=== PATIENT | male | born 1980 | race African-American/Black ===

== ENCOUNTER 2024-01-24 18:27 | Emergency (ER) | payer OTHER ==
[2024-01-24] MEDS ORDERED: hydrALAZINE 20 MG/ML VIAL ONE ×2 (19:28→20:45)
[2024-01-24] MEDS ORDERED: Furosemide 40 MG (4 mL) VIAL ONE (19:28)
[2024-01-24 19:55] LABS: #Basophils 0.03 10x3/uL (0.0-0.2); #Eosinophils 0.05 10x3/uL (0.0-0.5); #Monocytes 0.56 10x3/uL (0.0-1.1); #Neutrophils 3.39 10x3/uL (1.5-8.4); %Basophils 0.6 % (0.0-2.0); %Lymphocytes 22.9 % (18.0-47.0); %Monocytes 10.7 % (0.0-10.0); %Neutrophils 64.4 % (40.0-75.0); Hematocrit 42.3 % (38.8-50.0); Hemoglobin 14.5 g/dL (13.5-17.5); Mean Corpuscular HGB CONC 34.3 g/dL (32.0-36.0); Mean Corpuscular Hemoglobin 31.3 pg (27.0-33.0); Mean Corpuscular Volume 91.2 fL (81.2-95.1); Platelet Count 142 10x3/uL (150-450); RBC Distribution Width 13.7 % (11.5-14.5); Red Blood Cell (RBC) Count 4.64 10x6/uL (4.32-5.72); White Blood Cell (WBC) Count 5.3 10x3/uL (3.5-10.5)
[2024-01-24 20:07] LABS: Anion Gap 16 mmol/L (10-20); BUN (Urea Nitrogen) 13 mg/dL (8.9-20.6); Calc. Creatinine Clearance 0 mL/min (70-130); Calcium 9.6 mg/dL (7.8-10.44); Carbon Dioxide 27 mmol/L (22-29); Chloride 100 mmol/L (98-107); Estimated GFR 68; Glucose 90 mg/dL (70-105); Potassium 3.5 mmol/L (3.5-5.1); Sodium 139 mmol/L (136-145)
[2024-01-24 20:08] LABS: Troponin I 0.073 ng/mL (< 0.028)
[2024-01-24] MEDS ORDERED: Labetalol HCl 100 MG/20 ML VIAL ONE (20:46)
== END 2024-01-24 22:20 | disposition home or self-care (01) ==
LOC: CSHERS 18:27
DX: I10 Essential (primary) hypertension (principal)
CPT/HCPCS: 71045; 80048; 83880; 84484; 85025; 93005; 96374; 96375; J0360; J1940

== ENCOUNTER 2024-04-02 10:27 | Emergency (ER) | payer OTHER ==
[2024-04-02 11:59] LABS: #Basophils 0.05 10x3/uL (0.0-0.2); #Eosinophils 0.06 10x3/uL (0.0-0.5); #Monocytes 0.52 10x3/uL (0.0-1.1); #Neutrophils 5.77 10x3/uL (1.5-8.4); %Basophils 0.7 % (0.0-2.0); %Eosinophils 0.8 % (0.0-6.0); %Lymphocytes 12.2 % (18.0-47.0); %Monocytes 7.1 % (0.0-10.0); %Neutrophils 78.9 % (40.0-75.0); Hematocrit 43.9 % (38.8-50.0); Hemoglobin 14.9 g/dL (13.5-17.5); Mean Corpuscular HGB CONC 33.9 g/dL (32.0-36.0); Mean Corpuscular Hemoglobin 30.5 pg (27.0-33.0); Mean Platelet Volume 11.3 fL (7.4-10.4); Platelet Count 196 10x3/uL (150-450); RBC Distribution Width 13.8 % (11.5-14.5); Red Blood Cell (RBC) Count 4.88 10x6/uL (4.32-5.72); White Blood Cell (WBC) Count 7.31 10x3/uL (3.5-10.5)
[2024-04-02 12:10] LABS: ALT (SGPT) 48 U/L (8-55); AST (SGOT) 37 U/L (5-34); Albumin 3.8 g/dL (3.5-5.0); Alkaline Phosphatase 61 U/L (40-110); Anion Gap 14 mmol/L (10-20); BUN (Urea Nitrogen) 16 mg/dL (8.9-20.6); Bilirubin, Total 0.9 mg/dL (0.2-1.2); Calc. Creatinine Clearance 0 mL/min (70-130); Calcium 9.9 mg/dL (7.8-10.44); Carbon Dioxide 29 mmol/L (22-29); Chloride 101 mmol/L (98-107); Estimated GFR 67; Globulin 3.6 g/dL (2.4-3.5); Glucose 127 mg/dL (70-105); Potassium 3.9 mmol/L (3.5-5.1); Protein, Total 7.4 g/dL (6.0-8.3); Sodium 140 mmol/L (136-145)
== END 2024-04-02 12:44 | disposition home or self-care (01) ==
LOC: CSHERS 10:27
DX: I10 Essential (primary) hypertension (principal); E11.9 Type 2 diabetes mellitus without complications; F17.290 Nicotine dependence, other tobacco product, uncomplicated
CPT/HCPCS: 71045; 80053; 83880; 85025

== ENCOUNTER 2024-10-24 03:10 | Emergency (ER) | payer OTHER | END 2024-10-24 03:35 | disposition home or self-care (01) | LOC: CSHERS 03:10 | DX: T67.5XXA Heat exhaustion, unspecified, initial encounter (principal); I10 Essential (primary) hypertension; E11.9 Type 2 diabetes mellitus without complications; F17.290 Nicotine dependence, other tobacco product, uncomplicated; Z79.899 Other long term (current) drug therapy; W92.XXXA Exposure to excessive heat of man-made origin, initial encounter; Y92.89 Other specified places as the place of occurrence of the external cause; Y99.0 Civilian activity done for income or pay | CPT/HCPCS: 99283 ==

== ENCOUNTER 2024-11-20 05:34 | Emergency (ER) | payer OTHER ==
[2024-11-20] MEDS ORDERED: Ondansetron PF 4 MG/2 ML Vial ONE (06:05)
[2024-11-20] MEDS ORDERED: Ketorolac Tromethamine 30 MG (1 mL) VIAL ONE (06:05)
[2024-11-20 06:10] LABS: #Basophils 0.05 10x3/uL (0.0-0.2); #Eosinophils 0.05 10x3/uL (0.0-0.5); #Monocytes 0.77 10x3/uL (0.0-1.1); #Neutrophils 5.34 10x3/uL (1.5-8.4); %Basophils 0.7 % (0.0-2.0); %Eosinophils 0.7 % (0.0-6.0); %Lymphocytes 18.5 % (18.0-47.0); %Monocytes 10.1 % (0.0-10.0); %Neutrophils 69.7 % (40.0-75.0); Hematocrit 40.2 % (38.8-50.0); Hemoglobin 13.5 g/dL (13.5-17.5); Mean Corpuscular Hemoglobin 29.3 pg (27.0-33.0); Mean Corpuscular Volume 87.4 fL (81.2-95.1); Platelet Count 151 10x3/uL (150-450); Red Blood Cell (RBC) Count 4.60 10x6/uL (4.32-5.72); White Blood Cell (WBC) Count 7.64 10x3/uL (3.5-10.5)
[2024-11-20 06:29] LABS: ALT (SGPT) 61 U/L (Less than 45); AST (SGOT) 54 U/L (11-34); Albumin 4.3 g/dL (3.1-4.5); Alkaline Phosphatase 50 U/L (40-110); Anion Gap 22 mmol/L (10-20); BUN (Urea Nitrogen) 26 mg/dL (8.9-20.6); Bilirubin, Total 1.0 mg/dL (0.3-1.2); CK (CPK) 916 U/L (30-200); Calc. Creatinine Clearance 0 mL/min (70-130); Calcium 9.2 mg/dL (7.8-10.44); Carbon Dioxide 26 mmol/L (22-29); Chloride 95 mmol/L (98-107); Globulin 3.7 g/dL (2.4-3.5); Glucose 103 mg/dL (70-105); Lipase 43 U/L (8-78); Magnesium 1.4 mg/dL (1.6-2.6); Potassium 3.3 mmol/L (3.5-5.1); Sodium 140 mmol/L (136-145)
[2024-11-20 06:35] LABS: Troponin I 0.109 ng/mL (< 0.028)
[2024-11-20] MEDS ORDERED: Magnesium 2 GM/50 ML BAG (IN WATER) ONE (06:39)
[2024-11-20 08:47] LABS: CK (CPK) 789 U/L (30-200); Magnesium 1.8 mg/dL (1.6-2.6)
[2024-11-20 08:53] LABS: ALT (SGPT) 55 U/L (Less than 45); AST (SGOT) 51 U/L (11-34); Albumin 3.8 g/dL (3.1-4.5); Alkaline Phosphatase 46 U/L (40-110); Anion Gap 18 mmol/L (10-20); BUN (Urea Nitrogen) 27 mg/dL (8.9-20.6); Bilirubin, Total 0.8 mg/dL (0.3-1.2); Calc. Creatinine Clearance 0 mL/min (70-130); Calcium 8.4 mg/dL (7.8-10.44); Carbon Dioxide 26 mmol/L (22-29); Chloride 99 mmol/L (98-107); Globulin 3.1 g/dL (2.4-3.5); Glucose 94 mg/dL (70-105); Potassium 3.5 mmol/L (3.5-5.1); Sodium 139 mmol/L (136-145); Troponin I 0.114 ng/mL (< 0.028)
== END 2024-11-20 09:35 | disposition home or self-care (01) ==
LOC: CSHERS 05:34
DX: E86.0 Dehydration (principal); N17.9 Acute kidney failure, unspecified; E83.42 Hypomagnesemia; E87.6 Hypokalemia; R79.89 Other specified abnormal findings of blood chemistry; I10 Essential (primary) hypertension; E11.9 Type 2 diabetes mellitus without complications; F17.290 Nicotine dependence, other tobacco product, uncomplicated; Z79.899 Other long term (current) drug therapy
CPT/HCPCS: 36415; 80053; 82550; 83690; 83735; 84484; 85025; 93005; 96361; 96365; 96375; J1885; J2405; J3475

== ENCOUNTER 2024-12-04 03:12 | Emergency (ER) | payer OTHER ==
[2024-12-04 04:03] LABS: #Basophils Less than 0.03 10x3/uL (0.0-0.2); #Eosinophils 0.07 10x3/uL (0.0-0.5); #Monocytes 0.64 10x3/uL (0.0-1.1); #Neutrophils 3.29 10x3/uL (1.5-8.4); %Basophils 0.4 % (0.0-2.0); %Eosinophils 1.3 % (0.0-6.0); %Lymphocytes 27.8 % (18.0-47.0); %Monocytes 11.5 % (0.0-10.0); %Neutrophils 58.8 % (40.0-75.0); Hematocrit 39.5 % (38.8-50.0); Hemoglobin 13.0 g/dL (13.5-17.5); Mean Corpuscular Hemoglobin 29.4 pg (27.0-33.0); Mean Corpuscular Volume 89.4 fL (81.2-95.1); Platelet Count 137 10x3/uL (150-450); Red Blood Cell (RBC) Count 4.42 10x6/uL (4.32-5.72); White Blood Cell (WBC) Count 5.58 10x3/uL (3.5-10.5)
[2024-12-04] MEDS ORDERED: Ondansetron PF 4 MG/2 ML Vial ONE (04:13)
[2024-12-04 04:15] LABS: ALT (SGPT) 48 U/L (Less than 45); AST (SGOT) 52 U/L (11-34); Albumin 4.3 g/dL (3.1-4.5); Alkaline Phosphatase 48 U/L (40-110); Anion Gap 14 mmol/L (10-20); BUN (Urea Nitrogen) 32 mg/dL (8.9-20.6); Bilirubin, Total 0.5 mg/dL (0.3-1.2); CK (CPK) 570 U/L (30-200); Calc. Creatinine Clearance 0 mL/min (70-130); Calcium 9.7 mg/dL (7.8-10.44); Carbon Dioxide 29 mmol/L (22-29); Chloride 96 mmol/L (98-107); Globulin 3.5 g/dL (2.4-3.5); Glucose 98 mg/dL (70-105); Lipase 40 U/L (8-78); Potassium 3.6 mmol/L (3.5-5.1); Sodium 135 mmol/L (136-145)
[2024-12-04] MEDS ORDERED: Ketorolac Tromethamine 30 MG (1 mL) VIAL ONE (04:40)
[2024-12-04] MEDS ORDERED: Iopamidol 300 61% 100 ML VIAL FS ONE (10:13)
== END 2024-12-04 05:33 | disposition home or self-care (01) ==
LOC: CSHERS 03:12
DX: R10.84 Generalized abdominal pain (principal); M54.50 Low back pain, unspecified; I12.9 Hypertensive chronic kidney disease with stage 1 through stage 4 chronic kidney disease, or unspecified chronic kidney disease; N18.9 Chronic kidney disease, unspecified; R94.5 Abnormal results of liver function studies; E11.22 Type 2 diabetes mellitus with diabetic chronic kidney disease; F17.290 Nicotine dependence, other tobacco product, uncomplicated; Z75.3 Unavailability and inaccessibility of health-care facilities
CPT/HCPCS: 74177; 80053; 82550; 83690; 85025; 93005; 96374; J1885; J2405; Q9967

== ENCOUNTER → 2025-03-16 | Emergency (ER) | payer OTHER ==
[~2025-03-16] MED LIST: Lisinopril 20 MG TAB PO SCH; Nitroglycerin 2% Ointment 1 INCH/1 GM Packet ONE
[2025-03-16 12:02] LABS: #Basophils 0.04 10x3/uL (0.0-0.2); #Eosinophils 0.06 10x3/uL (0.0-0.5); #Monocytes 0.58 10x3/uL (0.0-1.1); #Neutrophils 5.23 10x3/uL (1.5-8.4); %Basophils 0.5 % (0.0-2.0); %Eosinophils 0.8 % (0.0-6.0); %Lymphocytes 19.1 % (18.0-47.0); %Monocytes 7.9 % (0.0-10.0); %Neutrophils 71.4 % (40.0-75.0); Hematocrit 42.0 % (38.8-50.0); Hemoglobin 13.9 g/dL (13.5-17.5); Mean Corpuscular Hemoglobin 29.4 pg (27.0-33.0); Mean Corpuscular Volume 89.0 fL (81.2-95.1); Platelet Count 157 10x3/uL (150-450); Red Blood Cell (RBC) Count 4.72 10x6/uL (4.32-5.72); White Blood Cell (WBC) Count 7.33 10x3/uL (3.5-10.5)
[2025-03-16 12:07] LABS: ALT (SGPT) 45 U/L (Less than 45); AST (SGOT) 38 U/L (11-34); Albumin 4.0 g/dL (3.1-4.5); Alkaline Phosphatase 54 U/L (40-110); Anion Gap 17 mmol/L (10-20); BUN (Urea Nitrogen) 14 mg/dL (8.9-20.6); Bilirubin, Total 0.3 mg/dL (0.3-1.2); Calc. Creatinine Clearance 0 mL/min (70-130); Calcium 9.6 mg/dL (7.8-10.44); Carbon Dioxide 28 mmol/L (22-29); Chloride 99 mmol/L (98-107); Globulin 3.1 g/dL (2.4-3.5); Glucose 97 mg/dL (70-105); Potassium 3.9 mmol/L (3.5-5.1); Sodium 140 mmol/L (136-145)
[2025-03-16 12:11] LABS: Troponin I 0.052 ng/mL (< 0.028)
[2025-03-16 15:12] LABS: Troponin I 0.060 ng/mL (< 0.028)
== END ==
LOC: CSHERS 11:22
DX: R07.9 Chest pain, unspecified (principal); R79.89 Other specified abnormal findings of blood chemistry; I10 Essential (primary) hypertension; E11.9 Type 2 diabetes mellitus without complications; F17.290 Nicotine dependence, other tobacco product, uncomplicated; Z79.899 Other long term (current) drug therapy
CPT/HCPCS: 36415; 71045; 80053; 82550; 83880; 84484; 85025; 85379; 87428; 93005; Q0162